=== PATIENT | female | born 1950 | race Caucasian/White ===

== ENCOUNTER 2017-07-26 09:38 | Inpatient (IN) | payer OTHER ==
[~2017-07-26] VITALS: Ht 154.9 cm; Wt 42.0 kg
[2017-07-26] MEDS ORDERED: morphine 4 MG/ML VIAL IV STA (10:35)
[2017-07-26] MEDS ORDERED: SOD CHLORIDE 0.9% 1,000 ML IV STA (10:35)
[2017-07-26] MEDS ORDERED: ONDANSETRON 4 MG INJ IV STA (10:35)
[2017-07-26] MEDS ORDERED: BENA20TA48 PO (10:46)
[2017-07-26] MEDS ORDERED: ATEN-51 PO (10:46)
[2017-07-26] MEDS ORDERED: CARB15DR BOTH EYES (10:47)
[2017-07-26] MEDS ORDERED: LATA2.5D9 BOTH EYES (10:47)
[2017-07-26 11:07] LABS: BASOPHILS % 0.1 % (0.0-2.0); EOSINOPHILS % 0.4 % (0.0-7.0); HEMATOCRIT 36.3 % (37.0-47.0); HEMOGLOBIN 12.6 g/dl (12.0-16.0); LYMPHOCYTES # 2.2 10^3/ul (0.8-2.9); LYMPHOCYTES % 27.8 % (15.0-51.0); MEAN CORPUSCULAR HEMOGLOBIN 29.2 pg (29.0-33.0); MEAN CORPUSCULAR HGB CONC 34.7 g/dl (32.0-37.0); MEAN CORPUSCULAR VOLUME 84.2 fl (82.0-101.0); MEAN PLATELET VOLUME 8.8 fl (7.4-10.4); MONOCYTE # 0.6 10^3/ul (0.3-0.9); MONOCYTES % 7.3 % (0.0-11.0); NEUTROPHILS % 64.1 % (39.0-77.0); PLATELET COUNT 300 10^3/UL (140-415); RED BLOOD COUNT 4.31 10^6/ul (4.20-5.40); RED CELL DISTRIBUTION WIDTH 11.9 % (11.5-14.5)
[2017-07-26 11:20] LABS: ALANINE AMINOTRANSFERASE 32 IU/L (13-69); ALBUMIN 4.6 g/dl (3.3-4.9); ALBUMIN/GLOBULIN RATIO 1.39; ALKALINE PHOSPHATASE 105 IU/L (42-121); ANION GAP 15 (8-16); ASPARTATE AMINO TRANSFERASE 32 IU/L (15-46); BILIRUBIN,INDIRECT 1.4 mg/dl (0-1.1); BILIRUBIN,TOTAL 1.4 mg/dl (0.2-1.3); BLOOD UREA NITROGEN 5 mg/dl (7-20); CALCIUM 9.7 mg/dl (8.4-10.2); CARBON DIOXIDE 25 mmol/L (21-31); CHLORIDE 80 mmol/L (97-110); CREATININE 0.62 mg/dl (0.44-1.00); GLUCOSE 108 mg/dl (70-220); POTASSIUM 4.2 mmol/L (3.5-5.1); TOTAL PROTEIN 7.9 g/dl (6.1-8.1)
[2017-07-26 11:35] LABS: ADD UMIC YES; UR ASCORBIC ACID NEGATIVE (NEGATIVE); UR BILIRUBIN (Dip) NEGATIVE (NEGATIVE); UR BLOOD (Dip) 1+ mg/dL (NEGATIVE); UR CLARITY SLIGHTLY CLOUDY (CLEAR); UR COLOR YELLOW (YELLOW); UR GLUCOSE (Dip) NEGATIVE (NEGATIVE); UR KETONES (Dip) TRACE mg/dL (NEGATIVE); UR LEUKOCYTE ESTERASE (Dip) NEGATIVE Leu/ul (NEGATIVE); UR NITRITE (Dip) NEGATIVE (NEGATIVE); UR RBC 3 /HPF (0-5); UR TOTAL PROTEIN (Dip) NEGATIVE (NEGATIVE); UR UROBILINOGEN (Dip) NEGATIVE (NEGATIVE)
[2017-07-26 11:37] LABS: SODIUM 116 mmol/L (135-144); TROPONIN-I < 0.012 ng/ml (0.00-0.12)
[2017-07-26] MEDS ORDERED: ONDANSETRON 4 MG INJ IV PRN (13:00)
[2017-07-26] MEDS ORDERED: ACETAMINOPHEN 325 MG TAB PO PRN (13:00)
--- NOTE | 2017-07-26 13:08 | ERA ---
ER Documentation Chief Complaint Date/Time DATE: 07/26/17 TIME: 13:05 Chief Complaint dizziness x 4 days, ap with vomiting and diarrhea x 2 days HPI Patient is a 66-year-old female with hypertension and glaucoma who presents with abdominal pain and vomiting. Her daughter had the same symptoms and was admitted to the hospital yesterday. The symptoms started 2-3 days ago. The pain in her abdomen is diffuse. The pain comes and goes. She has had diarrhea as well. She has no fevers. Upon review of old medical records this is the patient's first visit to the emergency department. Her primary doctor is Dr. Stewart. ROS All systems reviewed and are negative except as per history of present illness. Medications Home Meds Reported Medications Carboxymethylcellulose Sodium* (Refresh Tears*) 15 Ml Drops, 2 DROP BOTH EYES QID, #1 EA 07/26/17 Latanoprost (Xalatan) 2.5 Ml Drops, 1 DROP BOTH EYES QHS, #1 BOTTLE 07/26/17 Benazepril Hcl* (Benazepril Hcl*) 20 Mg Tablet, 20 MG PO DAILY, #30 TAB 07/26/17 Atenolol* (Atenolol*) 25 Mg Tablet, 25 MG PO DAILY, #30 TAB 07/26/17 Allergies Allergies: Coded Allergies: sulfamethoxazole (Verified Allergy, Severe, 07/26/17) trimethoprim (Verified Allergy, Severe, 07/26/17) PMhx/Soc History of Surgery: Yes (glaucoma, ) Anesthesia Reaction: No Hx Neurological Disorder: No Hx Respiratory Disorders: No Hx Cardiac Disorders: Yes (htn) Hx Psychiatric Problems: No Hx Miscellaneous Medical Probl: No Hx Alcohol Use: No Hx Substance Use: No Hx Tobacco Use: No Smoking Status: Never smoker FmHx Family History: diabetes Physical Exam Vitals Vital Signs Date Time Temp Pulse Resp B/P Pulse Ox O2 Delivery O2 Flow Rate FiO2 07/26/17 12:06 78 22 133/77 100 Room Air 07/26/17 09:42 98.1 81 18 176/92 99 Physical Exam Const: Moderate distress secondary to pain Head: Atraumatic Eyes: Normal Conjunctiva ENT: Normal External Ears, Nose and Mouth. Neck: Full range of motion..~ No meningismus. Resp: Clear to auscultation bilaterally Cardio: Regular rate and rhythm, no murmurs Abd: Soft, Diffuse tenderness to palpation without rebound or guarding Skin: No petechiae or rashes Back: No midline or flank tenderness Ext: No cyanosis, or edema Neur: Awake and alert Psych: Normal Mood and Affect Result Diagram: 07/26/17 1045 07/26/17 1045 Results 24 hrs Laboratory Tests Test 07/26/17 10:45 07/26/17 10:50 White Blood Count 8.010^3/ul Red Blood Count 4.3110^6/ul Hemoglobin 12.6g/dl Hematocrit 36.3% Mean Corpuscular Volume 84.2fl Mean Corpuscular Hemoglobin 29.2pg Mean Corpuscular Hemoglobin Concent 34.7g/dl Red Cell Distribution Width 11.9% Platelet Count 14403^3/UL Mean Platelet Volume 8.8fl Neutrophils % 64.1% Lymphocytes % 27.8% Monocytes % 7.3% Eosinophils % 0.4% Basophils % 0.1% Nucleated Red Blood Cells % 0.0/100WBC Neutrophils # (Manual) 5.110^3/ul Lymphocytes # 2.210^3/ul Monocytes # 0.610^3/ul Eosinophils # 0.010^3/ul Basophils # 0.010^3/ul Nucleated Red Blood Cells # 0.010^3/ul Sodium Level 116mmol/L Potassium Level 4.2mmol/L Chloride Level 80mmol/L Carbon Dioxide Level 25mmol/L Anion Gap 15 Blood Urea Nitrogen 5mg/dl Creatinine 0.62mg/dl Glucose Level 108mg/dl Calcium Level 9.7mg/dl Total Bilirubin 1.4mg/dl Direct Bilirubin 0.00mg/dl Indirect Bilirubin 1.4mg/dl Aspartate Amino Transf (AST/SGOT) 32IU/L Alanine Aminotransferase (ALT/SGPT) 32IU/L Alkaline Phosphatase 105IU/L Troponin I < 0.012ng/ml Total Protein 7.9g/dl Albumin 4.6g/dl Globulin 3.30g/dl Albumin/Globulin Ratio 1.39 Lipase 26U/L Urine Color YELLOW Urine Clarity SLIGHTLY CLOUDY Urine pH 8.0 Urine Specific [place] 1.010 Urine Ketones TRACEmg/dL Urine Nitrite NEGATIVEmg/dL Urine Bilirubin NEGATIVEmg/dL Urine Urobilinogen NEGATIVEmg/dL Urine Leukocyte Esterase NEGATIVELeu/ul Urine Microscopic RBC 3/HPF Urine Microscopic WBC 1/HPF Urine Hemoglobin 1+mg/dL Urine Glucose NEGATIVEmg/dL Urine Total Protein NEGATIVEmg/dl Current Medications Medications (Trade) Dose Ordered Sig/Kathya Route PRN Reason Start Time Stop Time Status Last Admin Dose Admin Sodium Chloride (NS) 1,000 ml @ 1,000 mls/hr Q1H STAT IV 07/26/17 10:35 07/26/17 11:34 DC 07/26/17 11:20 Morphine Sulfate (morphine) 4 mg ONCE STAT IV 07/26/17 10:35 07/26/17 10:36 DC 07/26/17 11:20 Ondansetron HCl (Zofran Inj) 4 mg ONCE STAT IV 07/26/17 10:35 07/26/17 10:36 DC 07/26/17 11:20 Ondansetron HCl (Zofran Inj) 4 mg ER BRIDGE PRN IV NAUSEA AND/OR VOMITING 07/26/17 13:00 07/27/17 12:59 Acetaminophen (Tylenol Tab) 650 mg ER BRIDGE PRN PO MILD PAIN/FEVER 07/26/17 13:00 07/27/17 12:59 Procedures/MDM Patient is a 66-year-old female presents with abdominal pain and vomiting. On routine workup she was found to have acute hyponatremia with a sodium level of 116. Given this low sodium she will need admission to the hospital for management. She was initially given 1 L fluid bolus of normal saline for fluid resuscitation given the vomiting and diarrhea and she finished this bolus prior to finding out the level of the sodium. After the sodium level was found I did tell the nurse to fluid restrict and did not give any more sodium so that we can prevent central pontine myelinolysis. The patient will need to be brought up slowly to a normal sodium level. I spoke with Dr. Rico from the panel team for admission to a telemetry bed as the patient has preferred [employer] insurance. Critical Care: Time: 35 minutes excluding all billable procedures. Treatments/Evaluations: Close monitoring and treatment of unstable vital signs, cardiorespiratory, and neurologic status, while maintaining tight balance of fluid, respiratory, and cardiac interventions. Departure Diagnosis: Primary Impression: Hyponatremia Additional Impressions: Abdominal pain Qualified Code: R10.84 - Generalized abdominal pain Vomiting Qualified Code: R11.2 - Non-intractable vomiting with nausea, unspecified vomiting type Condition: Serious DENNIS SANCHEZ MD Jul 26, 2017 13:08
[2017-07-26 14:54] VITALS: BP 179/70; PULSE 70; RESP 18; Ht 154.9 cm; Wt 42.0 kg
--- NOTE | 2017-07-26 15:13 | HP ---
Date/Time of Note Date/Time of Note DATE: 07/26/17 TIME: 15:12 Assessment/Plan VTE Prophylaxis VTE Prophylaxis Intervention: LMWH Lines/Catheters IV Catheter Type (from Nrs): Peripheral IV Central line still needed: No Urinary Cath still in place: No Assessment/Plan Assessment/Plan 1. Abdominal pain with nausea and vomiting - Etiology could be medication side effect since symptoms started after taking Bactrim for UTI - Has still been able to tolerate PO intake but has been poor - Zofran PRN for nausea - will start off with soft diet and advance as tolerated - Will check Cdiff due to reports of loose BMs that are foul smelling with recent antibiotic use 2. Hyponatremia, chronic - Per son, patient has been told multiple times that her sodium levels were running low. She was usually given IV fluid with improvement - Will fluid restrict at this time and order urine studies as well as plasma and urine osmolality to determine etiology of hyponatremia - Currently asymptomatic - Will consider getting nephrology on board since Dr. Parkinson is known to family for additional assistance 3. UTI? - patient was discharged on 07/23 from [facility] and did not complete course of antibiotics - no urinary symptoms and UA shows trace ketones and 1+ WBC. Since asymptomatic will hold off on treatment at this time. - afebrile and nl WBC so infection less likely - Urine culture ordered 4. HTN - will continue home medications with hold parameters 5. DVT prophylaxis - LMWH 6. Elevated LFT - Will continue to monitor. - negative murpheys sign - if continues to trend up will do US gallbladder in setting of vomiting and loose BM Code Status - Full Code I spent greater than 45 minutes with the patient and son discussing possible etiologies of medical condition as well as planned workup. All questions were answered and concerns addressed. HPI/ROS Admit Date/Time Admit Date/Time Jul 26, 2017 at 12:57 Hx of Present Illness 66 yo F with PMH glaucoma, cataracts, and hypertension presented to ED with abdominal pain, nausea, and vomiting for 3 day period. Son was at bedside as well providing information. Patient has been experiencing 3-4 episodes of nonbloody emesis daily. Last vomited at 9:30am on day of admission. Denies eating anything new but daughter was admitted for the same symptoms over the weekend. States abdominal pain is intermittent, not associated with eating, and relieved after vomiting. Unable to describe type of abdominal pain experiencing. She was recently admitted at [facility] in [place] and discharged on 07/23/17 with diagnosis of hyponatremia and UTI. She was discharged on Bactrim and states her nausea and vomiting began after starting the medication. She admits to loose BMs as well that are foul smelling. She stopped the medication after one dose. Denies any dysuria, suprapubic tenderness, change in smell or color of urine or hematuria. ROS please see HPI for pertinent positives. All other systems reviewed and are negative. Constitutional: fatigue, nausea, poor po, No chills, No febrile, No weight change Eyes: no complaints, No discharge, No redness ENT: no complaints, No congestion, No discharge, No dysphagia Respiratory: shortness of breath, No cough, No sputum, No wheezing Cardiovascular: lightheadedness, No chest pain, No orthopenea, No palpitations Gastrointestinal: diarrhea, nausea, pain, vomiting, No blood, No constipation, No flatus Genitourinary: No bleeding, No discharge, No dysuria, No hematuria Musculoskeletal: back pain, No neck pain, No restricted range of motion Skin: No bruising, No erythema, No laceration, No rash Neurologic: dizziness, headache, No focal-weakness, No syncope Endocrine: dry skin, No polydypsia, No polyuria Lymphatic: No lymphadema, No tender nodes Psychological: No confusion, No depression Immunologic: No pruritis, No urticaria PMH/Family/Social Past Medical History glaucoma, cataracts, hyponatremia Medical History: hypertension Past Surgical History Cesarian Past Surgical Hx: appendectomy Family History Significant Family History: heart disease, renal disease Social History Alcohol Use: none Smoking Status: Never smoker Drug Use: none Exam/Review of Systems Vital Signs Vitals Vital Signs Date Time Temp Pulse Resp B/P Pulse Ox O2 Delivery O2 Flow Rate FiO2 07/26/17 14:54 70 18 179/70 100 Room Air 07/26/17 09:42 98.1 Exam Constitutional: alert, oriented, well developed Psych: nl mood/affect, No confusion, No depression Head: atraumatic, normocephalic, No hematomas Eyes: EOMI, No icteric ENMT: nl external ears & nose, nl lips & teeth, nl nasal mucosa & septum Neck: No bruits, No jvd Respiratory: clear to auscultation, normal air movement, No diminished breath sounds, No labored breathing, No wheezing Cardiovascular: nl pulses, regular rate and rhythm, No diastolic murmur, No systolic murmur Gastrointestinal: nl liver, spleen, soft, tender, No ascites, No distended, No firm, No rebound or guarding Genitourinary - Female: No CVA tenderness Musculoskeletal: No spine non-tender Extremities: normal pulses, No clubbing, No cyanosis, No edema Neurological: LUMP RECEIVER II-XII intact Skin: No ecchymosis, No laceration Lymph: No enlarged Labs Result Diagram: 07/26/17 1045 07/26/17 1045 Medications Medications Current Medications Atenolol (Tenormin) 25 mg DAILY PO ; Start 07/27/17 at 09:00 Benazepril HCl (Lotensin) 20 mg DAILY PO ; Start 07/27/17 at 09:00 Eye Lubricant (Refresh Plus) 2 drop QID BOTH EYES ; Start 07/26/17 at 17:00 Latanoprost (Xalatan) 1 drop QHS BOTH EYES ; Start 07/26/17 at 21:00 AYALA BRITO MD Jul 26, 2017 15:13
[2017-07-26] MEDS ORDERED: NACL 0.9% 3 ML SYG IV SCH (15:30)
[2017-07-26 16:00] VITALS: PULSE 62
[2017-07-26] MEDS: CARBOXYMETHYLCELLULOSE 0.5% 0.1 ML OPH BOTH EYES SCH ×2 (17:00→21:16)
[2017-07-26 19:05] VITALS: BP 167/71; PULSE 69; RESP 16
[2017-07-26 20:02] LABS: POTASSIUM,URINE RANDOM 38.4 mmol/L (25-125)
[2017-07-26 20:24] LABS: ALBUMIN 4.7 g/dl (3.3-4.9); CALCIUM 9.6 mg/dl (8.4-10.2); CREATININE 0.64 mg/dl (0.44-1.00); PHOSPHORUS 3.5 mg/dl (2.5-4.9); POTASSIUM 4.3 mmol/L (3.5-5.1)
[2017-07-26] MEDS ORDERED: FAMOTIDINE 20 MG INJ IV SCH (21:00)
[2017-07-26] MEDS: FAMOTIDINE 20 MG TAB PO SCH (21:16)
[2017-07-26] MEDS: LATANOPROST 0.005% 2.5 ML OPH BOTH EYES SCH (21:16)
[2017-07-26 22:02] VITALS: PULSE 68
[2017-07-27] VITALS (14 sets, daily range): BP systolic 104–163; BP diastolic 59–76; PULSE 62–77; RESP 16–18
[2017-07-27 06:11] LABS: BASOPHILS % 0.4 % (0.0-2.0); EOSINOPHILS # 0.1 10^3/ul (0.0-0.5); EOSINOPHILS % 0.7 % (0.0-7.0); HEMOGLOBIN 12.5 g/dl (12.0-16.0); LYMPHOCYTES # 2.9 10^3/ul (0.8-2.9); LYMPHOCYTES % 43.3 % (15.0-51.0); MEAN CORPUSCULAR HEMOGLOBIN 28.3 pg (29.0-33.0); MEAN CORPUSCULAR HGB CONC 32.9 g/dl (32.0-37.0); MEAN CORPUSCULAR VOLUME 86.2 fl (82.0-101.0); MEAN PLATELET VOLUME 9.3 fl (7.4-10.4); MONOCYTE # 0.7 10^3/ul (0.3-0.9); MONOCYTES % 10.8 % (0.0-11.0); NEUTROPHILS % 44.7 % (39.0-77.0); PLATELET COUNT 311 10^3/UL (140-415); RED BLOOD COUNT 4.41 10^6/ul (4.20-5.40); RED CELL DISTRIBUTION WIDTH 12.3 % (11.5-14.5); WHITE BLOOD COUNT 6.8 10^3/ul (4.8-10.8)
[2017-07-27 06:41] LABS: ALBUMIN 4.2 g/dl (3.3-4.9); ALBUMIN/GLOBULIN RATIO 1.27; BILIRUBIN,INDIRECT 1.3 mg/dl (0-1.1); BILIRUBIN,TOTAL 1.3 mg/dl (0.2-1.3); CALCIUM 9.3 mg/dl (8.4-10.2); CREATININE 0.87 mg/dl (0.44-1.00); POTASSIUM 4.5 mmol/L (3.5-5.1); TOTAL PROTEIN 7.5 g/dl (6.1-8.1)
[2017-07-27] MEDS: ENOXAPARIN 40 MG/0.4 ML SYG SC SCH (09:00)
[2017-07-27] MEDS: CARBOXYMETHYLCELLULOSE 0.5% 0.1 ML OPH BOTH EYES SCH ×4 (09:03→21:10)
[2017-07-27] MEDS: ATENOLOL 25 MG TAB PO SCH (09:04)
[2017-07-27] MEDS: BENAZEPRIL 20 MG TAB PO SCH (09:04)
--- NOTE | 2017-07-27 10:43 | PN ---
Date/Time of Note Date/Time of Note DATE: 07/27/17 TIME: 10:32 Assessment/Plan VTE Prophylaxis VTE Prophylaxis Intervention: LMWH Lines/Catheters IV [facility] Saline Lock Urinary Cath still in place: No Assessment/Plan Assessment/Plan 1. Abdominal pain with nausea/vomiting - resolved - most likely secondary to hyponatremia - will advance diet 2. chronic hyponatremia - Na improved to 125 with fluid restriction of 800cc - most likely SIADH given elevated urine sodium and osmolality - Nephrology consulted and appreciated assistance given patient has been found to have low sodium levels frequently over the past few months - Patient admits she feels dizzy, nauseous, with abdominal pain when her sodium levels run low - Will order TSH to rule out hypothyroidism as contributor as well 3. HTN - BP stable. continue current management 4. UTI? - urine culture negative and patient is asymptomatic. Will not treat with antibiotics - afebrile and WBC nl Subjective 24 Hr Interval Summary Free Text/Dictation Patient seen and examined with son at bedside. States feeling significantly better and no longer experiencing nausea, vomiting, dizziness, or abdominal pain. States when her sodium gets low she feels how she did at time of admission. Tolerating diet and following water restrictions. Exam/Review of Systems Vital Signs Vitals Vital Signs Date Time Temp Pulse Resp B/P Pulse Ox O2 Delivery O2 Flow Rate FiO2 07/27/17 08:00 77 07/27/17 06:53 98.1 18 122/62 96 07/27/17 05:33 Room Air Exam Constitutional: alert, oriented, well developed, NAD Head: atraumatic, normocephalic, Eyes: EOMI, non icteric Neck: No bruits, No jvd Respiratory: clear to auscultation, normal air movement, no diminished breath sounds, No labored breathing, No wheezing Cardiovascular: nl pulses, regular rate and rhythm, no systolic murmur Gastrointestinal: nl liver, spleen, soft, tender, no ascites, No distended, No firm, No rebound or guarding Extremities: normal pulses, No clubbing, No cyanosis, No edema Neurological: COOK BOX FILLER II-XII intact Skin: No ecchymosis, No laceration Results Result Diagram: 07/27/17 0435 07/27/17 0435 Results 24 hrs Laboratory Tests Test 07/26/17 10:45 07/26/17 10:50 07/26/17 14:01 07/27/17 04:35 White Blood Count 8.0 6.8 Red Blood Count 4.31 4.41 Hemoglobin 12.6 12.5 Hematocrit 36.3 L 38.0 Mean Corpuscular Volume 84.2 86.2 Mean Corpuscular Hemoglobin 29.2 28.3 L Mean Corpuscular Hemoglobin Concent 34.7 32.9 Red Cell Distribution Width 11.9 12.3 Platelet Count 300 311 Mean Platelet Volume 8.8 9.3 Neutrophils % 64.1 44.7 Lymphocytes % 27.8 43.3 Monocytes % 7.3 10.8 Eosinophils % 0.4 0.7 Basophils % 0.1 0.4 Nucleated Red Blood Cells % 0.0 0.0 Neutrophils # (Manual) 5.1 3.0 Lymphocytes # 2.2 2.9 Monocytes # 0.6 0.7 Eosinophils # 0.0 0.1 Basophils # 0.0 0.0 Nucleated Red Blood Cells # 0.0 0.0 Sodium Level 116 *L 125 L Potassium Level 4.3 4.5 Chloride Level 82 L 90 L Carbon Dioxide Level 23 27 Anion Gap 15 13 Blood Urea Nitrogen 5 L 12 Creatinine 0.64 0.87 Glucose Level 111 80 Osmolality 237 L Calcium Level 9.6 9.3 Phosphorus Level 3.5 Total Bilirubin 1.4 H 1.3 Direct Bilirubin 0.00 0.00 Indirect Bilirubin 1.4 H 1.3 H Aspartate Amino Transf (AST/SGOT) 32 51 H Alanine Aminotransferase (ALT/SGPT) 32 54 Alkaline Phosphatase 105 108 Troponin I < 0.012 Total Protein 7.9 7.5 Albumin 4.7 4.2 Globulin 3.30 H 3.30 H Albumin/Globulin Ratio 1.39 1.27 Lipase 26 Urine Color YELLOW Urine Clarity SLIGHTLY CLOUDY A Urine pH 8.0 Urine Specific [place] 1.010 Urine Ketones TRACE A Urine Nitrite NEGATIVE Urine Bilirubin NEGATIVE Urine Urobilinogen NEGATIVE Urine Leukocyte Esterase NEGATIVE Urine Microscopic RBC 3 Urine Microscopic WBC 1 Urine Hemoglobin 1+ H Urine Osmolality 396 Urine Random Sodium 146 H Urine Random Potassium 38.4 Urine Glucose NEGATIVE Urine Total Protein NEGATIVE Bedside Glucose 111 Magnesium Level 2.1 Medications Medications Current Medications Atenolol (Tenormin) 25 mg DAILY PO Last administered on 07/27/17t 09:04; Admin Dose 25 MG; Start 07/27/17 at 09:00 Benazepril HCl (Lotensin) 20 mg DAILY PO Last administered on 07/27/17 09:04; Admin Dose 20 MG; Start 07/27/17 at 09:00 Eye Lubricant (Refresh Plus) 2 drop QID BOTH EYES Last administered on 09:03; Admin Dose 2 DROP; Start 07/26/17 at 17:00 Latanoprost (Xalatan) 1 drop QHS BOTH EYES Last administered on 07/26/17 21:16 ; Admin Dose 1 DROP; Start 07/26/17 at 21:00 Enoxaparin Sodium (Lovenox) 40 mg DAILY SC ; Start 07/27/17 at 09:00 Famotidine (Pepcid) 20 mg Q24H PO Last administered on 07/26/17 21:16; Admin Dose 20 MG; Start 07/26/17 at 21:06 AYALA BRITO MD Jul 27, 2017 10:43
[2017-07-27 11:06] LABS: URIC ACID 3.5 mg/dl (3.1-7.9)
[2017-07-27 11:39] LABS: THYROID STIMULATING HORMONE 7.09 MIU/L (0.465-4.680)
--- NOTE | 2017-07-27 13:54 | RADRPT ---
PROCEDURE: Renal US. CLINICAL INDICATION: hyponatremia TECHNIQUE: Multiple sonographic images of the kidneys were obtained. The images were reviewed on a PACS workstation. COMPARISON: No prior studies are available for comparison. FINDINGS: The right kidney measures 10.3 cm in length. The left kidney measures 10.1 cm in length. Renal corti sreedhar echogenicity is within normal limits bilaterally. No hydronephrosis or shadowing renal calculus is identified. No perirenal collection is seen. The bladder is under distended and could not be adequately evaluated. IMPRESSION: Unremarkable renal ultrasound. RPTAT: QQ Physician Herminia Date Time Electronically viewed and signed by Physician Herminia on 07/27/2017 13:54 /
[2017-07-27] MEDS: DEMECLOCYCLINE 150 MG TAB NGT SCH ×2 (14:28→21:00)
[2017-07-27] MEDS: FAMOTIDINE 20 MG TAB PO SCH (21:06)
[2017-07-27] MEDS: LATANOPROST 0.005% 2.5 ML OPH BOTH EYES SCH (21:11)
--- NOTE | 2017-07-27 22:31 | CONS ---
Date/Time of Note Date/Time of Note DATE: 07/27/17 TIME: 22:30 Assessment/Plan Assessment/Plan Chief Complaint/Hosp Course HYPONATREMIA POSS SIADH HTN PLAN PER ORDER Problems: Consultation Date/Type/Reason Admit Date/Time Jul 26, 2017 at 12:57 Initial Consult Date Type of Consultation: [id number] HR Interval Summary Constitutional: no complaints Exam/Review of Systems Vital Signs Vitals Vital Signs Date Time Temp Pulse Resp B/P Pulse Ox O2 Delivery O2 Flow Rate FiO2 07/27/17 20:39 72 07/27/17 20:00 97.8 18 135/61 98 07/27/17 05:33 Room Air Exam Neck: supple Respiratory: clear to auscultation Cardiovascular: regular rate and rhythm Gastrointestinal: bowel sounds, soft Musculoskeletal: nl extremities to inspection Extremities: normal pulses Neurological: CARD PAINTER II-XII intact, nl mental status Results Result Diagram: 07/27/17 0435 07/27/17 0435 Results 24 hrs Laboratory Tests Test 07/27/17 04:35 07/27/17 11:25 07/27/17 12:09 07/27/17 16:04 White Blood Count 6.8 Red Blood Count 4.41 Hemoglobin 12.5 Hematocrit 38.0 Mean Corpuscular Volume 86.2 Mean Corpuscular Hemoglobin 28.3 L Mean Corpuscular Hemoglobin Concent 32.9 Red Cell Distribution Width 12.3 Platelet Count 311 Mean Platelet Volume 9.3 Neutrophils % 44.7 Lymphocytes % 43.3 Monocytes % 10.8 Eosinophils % 0.7 Basophils % 0.4 Nucleated Red Blood Cells % 0.0 Neutrophils # (Manual) 3.0 Lymphocytes # 2.9 Monocytes # 0.7 Eosinophils # 0.1 Basophils # 0.0 Nucleated Red Blood Cells # 0.0 Sodium Level 125 L Potassium Level 4.5 Chloride Level 90 L Carbon Dioxide Level 27 Anion Gap 13 Blood Urea Nitrogen 12 Creatinine 0.87 Glucose Level 80 Uric Acid 3.5 Calcium Level 9.3 Magnesium Level 2.1 Total Bilirubin 1.3 Direct Bilirubin 0.00 Indirect Bilirubin 1.3 H Aspartate Amino Transf (AST/SGOT) 51 H Alanine Aminotransferase (ALT/SGPT) 54 Alkaline Phosphatase 108 Total Protein 7.5 Albumin 4.2 Globulin 3.30 H Albumin/Globulin Ratio 1.27 Thyroid Stimulating Hormone (TSH) 7.090 H Urine Osmolality 292 Urine Random Sodium 27 L Osmolality 261 L Random Cortisol 10.2 Test 07/27/17 19:44 Free Thyroxine 1.31 Free Triiodothyronine (T3) pg/mL 3.73 Medications Medications Current Medications Atenolol (Tenormin) 25 mg DAILY PO Last administered on 07/27/17 09:04; Admin Dose 25 MG; Start 07/27/17 at 09:00 Benazepril HCl (Lotensin) 20 mg DAILY PO Last administered on 07/27/17 09:04; Admin Dose 20 MG; Start 07/27/17 at 09:00 Eye Lubricant (Refresh Plus) 2 drop QID BOTH EYES Last administered on 21:10; Admin Dose 2 DROP; Start 07/26/17 at 17:00 Latanoprost (Xalatan) 1 drop QHS BOTH EYES Last administered on 07/27/17 21:11 ; Admin Dose 1 DROP; Start 07/26/17 at 21:00 Enoxaparin Sodium (Lovenox) 40 mg DAILY SC ; Start 07/27/17 at 09:00 Famotidine (Pepcid) 20 mg Q24H PO Last administered on 07/26/17 21:16; Admin Dose 20 MG; Start 07/26/17 at 21:06 Demeclocycline HCl (Declomycin) 300 mg BID NGT Last administered on 07/27/17 14 :28; Admin Dose 300 MG; Start 07/27/17 at 14:00 Levothyroxine Sodium (Synthroid) 25 mcg DAILY@06 PO ; Start 07/28/17 at 06:00 JAROD CORCORAN MD Jul 27, 2017 22:31
[2017-07-28] VITALS (13 sets, daily range): BP systolic 105–128; BP diastolic 59–73; PULSE 64–77; RESP 17–19
[2017-07-28] MEDS: LEVOTHYROXINE 25 MCG TAB PO SCH (06:00)
--- NOTE | 2017-07-28 06:24 | CONS ---
DATE OF ADMISSION: 07/26/2017 DATE OF CONSULTATION: 07/28/2017 Thank you, Dr. Lott, for kindly asking me to see this patient in Nephrology Consultation. 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 The patient was taken to the ER with a history of hypertension, glaucoma, presents with abdominal pain and vomiting. The patient also has a history of hypernatremia in the past and noted to have sodium 116, and a nephrology consultation requested. The patient denies taking any diuretic, does drink plenty of water. Denies any dysuria, hematuria, flank pain, headache, diplopia in the past. PAST MEDICAL/SURGICAL HISTORY: Positive for hypertension, glaucoma, . The patient had history of appendectomy. ALLERGIES: bactrim, TRIMETHOPRIM. SOCIAL HISTORY: Negative. FAMILY HISTORY: Negative. MEDICATION: 1. Atenolol. 2. Benazepril. 3. Demeclocycline. 4. Lovenox. 5. Eye lubricant. 6. Pepcid. REVIEW OF SYSTEMS: HEENT: Unremarkable. RESPIRATORY: Unremarkable. ABDOMEN: Unremarkable. EXTREMITIES: Unremarkable for numbness or tingling. GENITOURINARY: No dysuria, hematuria, flank pain. PHYSICAL EXAMINATION: GENERAL: Pale looking female. Awake and alert. VITAL SIGNS: Pulse 72, blood pressure 135/61. HEENT: Head is atraumatic, normocephalic. Pupils equal, reactive to light. NECK: Supple. No JVD. LUNGS: Clear. CARDIAC: S1, S2 normal. ABDOMEN: Soft. Bowel sounds normal. No palpable mass. EXTREMITIES: No cyanosis, clubbing, or edema. NEUROLOGIC: Patient is awake, alert, with no focal deficit. LABORATORY: Sodium 116,. Urinalysis: The pH is 8, specific gravity 1.010. RADIOLOGY: Patient has right kidney 10.3, left kidney 10.1. IMPRESSION: 1. Hypernatremia. 2. Rule out underlying syndrome of inappropriate antidiuretic hormone secretion. 3. Hypernatremia worsened by possible gastrointestinal symptoms. 4. Rule out underlying hypothyroidism. 5. Hypertension. 6. Anemia. PLAN: At this point, a urine sodium, CAT scan. Patient will have serum cortisol level checked, thyroid panel, a CT of the brain, abdomen to complete the workup. Patient will be given normal saline with intermittent use of . This patient also is given option of using demeclocycline/samsaca_ as an outpatient. The patient will think about this. Sodium will be checked very closely. Thank you, Dr. Lott, for kindly asking me to see this patient in a Nephrology consultation. Dictated By: Adama Parkinson MD /hannah/[email or web address] /Document#: [id number] JANNET
[2017-07-28 07:37] LABS: ALBUMIN/GLOBULIN RATIO 1.37; BILIRUBIN,INDIRECT 0.9 mg/dl (0-1.1); BILIRUBIN,TOTAL 0.9 mg/dl (0.2-1.3); CALCIUM 9.4 mg/dl (8.4-10.2); CREATININE 0.64 mg/dl (0.44-1.00); POTASSIUM 4.7 mmol/L (3.5-5.1); TOTAL PROTEIN 6.9 g/dl (6.1-8.1)
[2017-07-28] MEDS: ENOXAPARIN 40 MG/0.4 ML SYG SC SCH (08:57)
[2017-07-28] MEDS: DEMECLOCYCLINE 150 MG TAB NGT SCH ×2 (08:57→21:00)
[2017-07-28] MEDS: ATENOLOL 25 MG TAB PO SCH (08:58)
[2017-07-28] MEDS: BENAZEPRIL 20 MG TAB PO SCH (08:58)
[2017-07-28] MEDS: CARBOXYMETHYLCELLULOSE 0.5% 0.1 ML OPH BOTH EYES SCH ×4 (08:59→21:52)
--- NOTE | 2017-07-28 10:40 | PN ---
Date/Time of Note Date/Time of Note DATE: 07/28/17 TIME: 10:40 Assessment/Plan VTE Prophylaxis VTE Prophylaxis Intervention: LMWH Lines/Catheters IV Catheter Type (from Nrs): Saline Lock Urinary Cath still in place: No Assessment/Plan Assessment/Plan 1. Chronic hyponatremia - Na improved to 126 - Did not tolerate demeclocycline yesterday and refusing to take medication again - Discussed discharge plan with Dr. Parkinson and feels as if patient should not be discharged until sodium is >130. Will give a dose of Tolvaptan and monitor Na levels 2. Subclinical hypothyroidism - Will need to monitor as an outpatient - Denies any symptoms currently 3. Abdominal pain with nausea/vomiting - resolved - most likely secondary to hyponatremia 4. HTN - BP stable. continue current management Subjective 24 Hr Interval Summary Free Text/Dictation Patient seen and examined with son at bedside. States after took demeclocycline was not feeling well but better this am. Denies any further episodes of nausea, vomiting, abdominal pain. No chest pain, shortness of breath, dizziness, or LOC. Exam/Review of Systems Vital Signs Vitals Vital Signs Date Time Temp Pulse Resp B/P Pulse Ox O2 Delivery O2 Flow Rate FiO2 07/28/17 08:43 72 07/28/17 07:57 98.0 19 128/68 98 07/27/17 05:33 Room Air Intake and Output 07/27/17 07/27/17 07/28/17 14:59 22:59 06:59 Intake Total 400 ml 100 ml Balance 400 ml 100 ml Exam Constitutional: alert, oriented, well developed, NAD Head: atraumatic, normocephalic, Eyes: EOMI, non icteric Neck: No bruits, No jvd Respiratory: clear to auscultation, normal air movement, no diminished breath sounds, No wheezing Cardiovascular: nl pulses, regular rate and rhythm, no systolic murmur Gastrointestinal: nl liver, spleen, soft, tender, no ascites, No distended, No firm, No rebound or guarding Extremities: normal pulses, No clubbing, No cyanosis, No edema Results Result Diagram: 07/27/17 0435 07/28/17 0611 Results 24 hrs Laboratory Tests Test 07/27/17 11:25 07/27/17 12:09 07/27/17 16:04 07/27/17 19:44 Urine Osmolality 292 Urine Random Sodium 27 L Osmolality 261 L Random Cortisol 10.2 Free Thyroxine 1.31 Free Triiodothyronine (T3) pg/mL 3.73 Test 07/28/17 06:11 Sodium Level 126 L Potassium Level 4.7 Chloride Level 94 L Carbon Dioxide Level 24 Anion Gap 13 Blood Urea Nitrogen 18 Creatinine 0.64 Glucose Level 77 Calcium Level 9.4 Total Bilirubin 0.9 Direct Bilirubin 0.00 Indirect Bilirubin 0.9 Aspartate Amino Transf (AST/SGOT) 61 H Alanine Aminotransferase (ALT/SGPT) 66 Alkaline Phosphatase 101 Total Protein 6.9 Albumin 4.0 Globulin 2.90 Albumin/Globulin Ratio 1.37 Medications Medications Current Medications Atenolol (Tenormin) 25 mg DAILY PO Last administered on 07/28/17 08:58; Admin Dose 25 MG; Start 07/27/17 at 09:00 Benazepril HCl (Lotensin) 20 mg DAILY PO Last administered on 07/28/17 08:58; Admin Dose 20 MG; Start 07/27/17 at 09:00 Eye Lubricant (Refresh Plus) 2 drop QID BOTH EYES Last administered on 08:59; Admin Dose 2 DROP; Start 07/26/17 at 17:00 Latanoprost (Xalatan) 1 drop QHS BOTH EYES Last administered on 07/27/17 21:11 ; Admin Dose 1 DROP; Start 07/26/17 at 21:00 Enoxaparin Sodium (Lovenox) 40 mg DAILY SC ; Start 07/27/17 at 09:00 Famotidine (Pepcid) 20 mg Q24H PO Last administered on 07/26/17 21:16; Admin Dose 20 MG; Start 07/26/17 at 21:06 Demeclocycline HCl (Declomycin) 300 mg BID NGT Last administered on 07/27/17 14 :28; Admin Dose 300 MG; Start 07/27/17 at 14:00 Levothyroxine Sodium (Synthroid) 25 mcg DAILY@06 PO ; Start 07/28/17 at 06:00 AYALA BRITO MD Jul 28, 2017 10:40
[2017-07-28] MEDS ORDERED: TOLVAPTAN 15 MG TABLET PO ONE (13:30)
--- NOTE | 2017-07-28 16:53 | PN ---
Date/Time of Note Date/Time of Note DATE: 07/28/17 TIME: 16:51 Assessment/Plan VTE Prophylaxis VTE Prophylaxis Intervention: other Lines/Catheters [facility] Saline [facility] Urinary Cath still in place: No Assessment/Plan Chief Complaint/Hosp Course IMPRESSION: 1. Hyponatremia. 2. Rule out underlying syndrome of inappropriate antidiuretic hormone secretion. 3. Hypornatremia worsened by possible gastrointestinal symptoms. 4. Rule out underlying hypothyroidism. 5. Hypertension. 6. Anemia. plan samsca Problems: Subjective 24 Hr Interval Summary Respiratory: no complaints Cardiovascular: no complaints Gastrointestinal: no complaints Genitourinary: no complaints Exam/Review of Systems Vital Signs Vitals Vital Signs Date Time Temp Pulse Resp B/P Pulse Ox O2 Delivery O2 Flow Rate FiO2 07/28/17 16:31 73 07/28/17 15:00 98.0 19 107/70 98 07/27/17 05:33 Room Air Intake and Output 07/27/17 07/27/17 07/28/17 15:00 23:00 07:00 Intake Total 400 ml 100 ml Balance 400 ml 100 ml Exam Neck: supple Respiratory: clear to auscultation Cardiovascular: regular rate and rhythm Gastrointestinal: bowel sounds (+), soft Extremities: No edema Results Result Diagram: 07/27/17 0435 07/28/17 0611 Results 24 hrs Laboratory Tests Test 07/27/17 19:44 07/28/17 06:11 Free Thyroxine 1.31 Free Triiodothyronine (T3) pg/mL 3.73 Sodium Level 126 L Potassium Level 4.7 Chloride Level 94 L Carbon Dioxide Level 24 Anion Gap 13 Blood Urea Nitrogen 18 Creatinine 0.64 Glucose Level 77 Calcium Level 9.4 Total Bilirubin 0.9 Direct Bilirubin 0.00 Indirect Bilirubin 0.9 Aspartate Amino Transf (AST/SGOT) 61 H Alanine Aminotransferase (ALT/SGPT) 66 Alkaline Phosphatase 101 Total Protein 6.9 Albumin 4.0 Globulin 2.90 Albumin/Globulin Ratio 1.37 Medications Medications Current Medications Atenolol (Tenormin) 25 mg DAILY PO Last administered on 07/28/17 08:58; Admin Dose 25 MG; Start 07/27/17 at 09:00 Benazepril HCl (Lotensin) 20 mg DAILY PO Last administered on 07/28/17 08:58; Admin Dose 20 MG; Start 07/27/17 at 09:00 Eye Lubricant (Refresh Plus) 2 drop QID BOTH EYES Last administered on 13:47; Admin Dose 2 DROP; Start 07/26/17 at 17:00 Latanoprost (Xalatan) 1 drop QHS BOTH EYES Last administered on 07/27/17 21:11 ; Admin Dose 1 DROP; Start 07/26/17 at 21:00 Enoxaparin Sodium (Lovenox) 40 mg DAILY SC ; Start 07/27/17 at 09:00 Famotidine (Pepcid) 20 mg Q24H PO Last administered on 07/26/17 21:16; Admin Dose 20 MG; Start 07/26/17 at 21:06 Demeclocycline HCl (Declomycin) 300 mg BID NGT Last administered on 07/27/17 14 :28; Admin Dose 300 MG; Start 07/27/17 at 14:00 Levothyroxine Sodium (Synthroid) 25 mcg DAILY@06 PO ; Start 07/28/17 at 06:00 JAROD CORCORAN MD Jul 28, 2017 16:53
[2017-07-28] MEDS: FAMOTIDINE 20 MG TAB PO SCH (21:06)
[2017-07-28] MEDS: LATANOPROST 0.005% 2.5 ML OPH BOTH EYES SCH (21:52)
[2017-07-29] VITALS (7 sets, daily range): BP systolic 97–122; BP diastolic 48–63; PULSE 64–81; RESP 17–20
[2017-07-29] MEDS: LEVOTHYROXINE 25 MCG TAB PO SCH (06:00)
[2017-07-29] MEDS: DEMECLOCYCLINE 150 MG TAB NGT SCH (09:00)
[2017-07-29] MEDS: ENOXAPARIN 40 MG/0.4 ML SYG SC SCH (09:00)
[2017-07-29] MEDS: BENAZEPRIL 20 MG TAB PO SCH (09:13)
[2017-07-29] MEDS: ATENOLOL 25 MG TAB PO SCH (09:13)
[2017-07-29 09:36] LABS: ALBUMIN 4.4 g/dl (3.3-4.9); CREATININE 0.73 mg/dl (0.44-1.00); MAGNESIUM 2.3 mg/dl (1.7-2.5); POTASSIUM 4.8 mmol/L (3.5-5.1)
[2017-07-29 10:05] LABS: PHOSPHORUS 4.5 mg/dl (2.5-4.9)
--- NOTE | 2017-07-29 10:41 | PN ---
Date/Time of Note Date/Time of Note DATE: 07/29/17 TIME: 10:40 Assessment/Plan VTE Prophylaxis VTE Prophylaxis Intervention: LMWH Lines/Catheters IV Catheter Type (from [facility]): Saline Lock Urinary Cath still in place: No Assessment/Plan Assessment/Plan 1. Chronic hyponatremia - After Tolvaptan, Na improved to 133 - Spoke with Dr. Parkinson and cleared for discharge - Will advise to take NaCl tablets with meals 2. Subclinical hypothyroidism - Will need to monitor as an outpatient - Denies any symptoms currently 3. Abdominal pain with nausea/vomiting - resolved - most likely secondary to hyponatremia 4. HTN - BP stable. continue current management Subjective 24 Hr Interval Summary Free Text/Dictation patient doing well and has no new complaints. Tolerated the Tolvaptan yesterday and denies any further episodes of abdominal pain, nausea, vomiting, dizziness, chest pain, or diarrhea. Exam/Review of Systems Vital Signs Vitals Vital Signs Date Time Temp Pulse Resp B/P Pulse Ox O2 Delivery O2 Flow Rate FiO2 07/29/17 08:47 78 07/29/17 07:51 98.4 17 113/56 98 07/27/17 05:33 Room Air Intake and Output 07/28/17 07/28/17 07/29/17 15:00 23:00 07:00 Intake Total 500 ml 200 ml Balance 500 ml 200 ml Exam Constitutional: alert, oriented, well developed, NAD Head: atraumatic, normocephalic, Eyes: EOMI, non icteric Neck: No bruits, No jvd Respiratory: clear to auscultation, normal air movement, no diminished breath sounds, No wheezing Cardiovascular: nl pulses, regular rate and rhythm, no systolic murmur Gastrointestinal: nl liver, spleen, soft, tender, no ascites, No distended, No firm, No rebound or guarding Extremities: normal pulses, No clubbing, No cyanosis, No edema Results Result Diagram: 07/27/17 0435 07/29/17 0839 Results 24 hrs Laboratory Tests Test 07/28/17 16:41 07/29/17 00:52 07/29/17 08:39 Sodium Level 128 L 131 L 133 L Potassium Level 4.8 Chloride Level 97 Carbon Dioxide Level 27 Anion Gap 14 Blood Urea Nitrogen 17 Creatinine 0.73 Glucose Level 94 Calcium Level 10.0 Phosphorus Level 4.5 Magnesium Level 2.3 Albumin 4.4 Medications Medications Current Medications Atenolol (Tenormin) 25 mg DAILY PO Last administered on 07/29/17 09:13; Admin Dose 25 MG; Start 07/27/17 at 09:00 Benazepril HCl (Lotensin) 20 mg DAILY PO Last administered on 07/29/17 09:13; Admin Dose 20 MG; Start 07/27/17 at 09:00 Eye Lubricant (Refresh Plus) 2 drop QID BOTH EYES Last administered on 21:52; Admin Dose 2 DROP; Start 07/26/17 at 17:00 Latanoprost (Xalatan) 1 drop QHS BOTH EYES Last administered on 07/28/17 21:52 ; Admin Dose 1 DROP; Start 07/26/17 at 21:00 Enoxaparin Sodium (Lovenox) 40 mg DAILY SC ; Start 07/27/17 at 09:00 Famotidine (Pepcid) 20 mg Q24H PO Last administered on 07/26/17 21:16; Admin Dose 20 MG; Start 07/26/17 at 21:06 Demeclocycline HCl (Declomycin) 300 mg BID NGT Last administered on 07/27/17 14 :28; Admin Dose 300 MG; Start 07/27/17 at 14:00 Levothyroxine Sodium (Synthroid) 25 mcg DAILY@06 PO ; Start 07/28/17 at 06:00 AYALA BRITO MD Jul 29, 2017 10:41
[2017-07-29] MEDS: CARBOXYMETHYLCELLULOSE 0.5% 0.1 ML OPH BOTH EYES SCH ×2 (11:10→13:03)
[2017-07-29] MEDS ORDERED: SODI1TAB42 PO (11:54)
--- NOTE | 2017-07-29 11:59 | PDOCDIS ---
Discharge Instructions DIAGNOSIS Discharge Diagnosis Abdominal pain with nausea/vomiting secondary to hyponatremia CONDITION Patient Condition: Good HOME CARE INSTRUCTIONS: Diet Instructions: RegularSpecial Diet: Reg. diet. ACTIVITY: Activity Restrictions: No Restrictions FOLLOW UP/APPOINTMENTS Follow-up Plan Take salt tablets with meals three times a day Follow up with Dr. Parkinson for monitoring of your sodium levels Keep well hydrated If experiencing symptoms again, return to the ED Make sure you talk to your PCP about thyroid medication for subclinical hypothyroidism REFERRALS Other Referrals Name, Degree Aadma Parkinson MD Specialty Nephrology Office Address [address] [place] [address] Office Office AYALA BRITO MD Jul 29, 2017 11:59
--- NOTE | 2017-07-29 12:56 | CONS ---
Date/Time of Note Date/Time of Note DATE: 07/29/17 TIME: 12:54 Assessment/Plan Assessment/Plan Chief Complaint/Hosp Course 1. Hyponatremia. 2. Rule out underlying syndrome of inappropriate antidiuretic hormone secretion. 3. Hypertension, controlled. 4. Anemia. 5. cachexia. Problems: Additional Assessment/Plan 1. Discharge home with fluid restrictions Consultation Date/Type/Reason Admit Date/Time Jul 26, 2017 at 12:57 Initial Consult Date Type of Consultation: [id number] Exam/Review of Systems Vital Signs Vitals Vital Signs Date Time Temp Pulse Resp B/P Pulse Ox O2 Delivery O2 Flow Rate FiO2 07/29/17 12:16 81 07/29/17 11:59 98.3 20 97/48 98 07/27/17 05:33 Room Air Intake and Output 07/28/17 07/28/17 07/29/17 14:59 22:59 06:59 Intake Total 500 ml 200 ml Balance 500 ml 200 ml Results Result Diagram: 07/27/17 0435 07/29/17 0839 Results 24 hrs Laboratory Tests Test 07/28/17 16:41 07/29/17 00:52 07/29/17 08:39 Sodium Level 128 L 131 L 133 L Potassium Level 4.8 Chloride Level 97 Carbon Dioxide Level 27 Anion Gap 14 Blood Urea Nitrogen 17 Creatinine 0.73 Glucose Level 94 Calcium Level 10.0 Phosphorus Level 4.5 Magnesium Level 2.3 Albumin 4.4 Medications Medications Current Medications Atenolol (Tenormin) 25 mg DAILY PO Last administered on 07/29/17 09:13; Admin Dose 25 MG; Start 07/27/17 at 09:00 Benazepril HCl (Lotensin) 20 mg DAILY PO Last administered on 07/29/17 09:13; Admin Dose 20 MG; Start 07/27/17 at 09:00 Eye Lubricant (Refresh Plus) 2 drop QID BOTH EYES Last administered on 11:10; Admin Dose 2 DROP; Start 07/26/17 at 17:00 Latanoprost (Xalatan) 1 drop QHS BOTH EYES Last administered on 07/28/17 21:52 ; Admin Dose 1 DROP; Start 07/26/17 at 21:00 Enoxaparin Sodium (Lovenox) 40 mg DAILY SC ; Start 07/27/17 at 09:00 Famotidine (Pepcid) 20 mg Q24H PO Last administered on 07/26/17 21:16; Admin Dose 20 MG; Start 07/26/17 at 21:06 Demeclocycline HCl (Declomycin) 300 mg BID NGT Last administered on 07/27/17 14 :28; Admin Dose 300 MG; Start 07/27/17 at 14:00 Levothyroxine Sodium (Synthroid) 25 mcg DAILY@06 PO ; Start 07/28/17 at 06:00 JUNITO CHRISTENSEN Jul 29, 2017 12:56
--- NOTE | 2017-07-30 08:29 | DS ---
Date/Time of Note Date/Time of Note DATE: 07/30/17 TIME: 08:23 Discharge Summary Admission/Discharge Info Admit Date/Time Jul 26, 2017 at 12:57 Discharge Date/Time Jul 29, 2017 at 13:10 Discharge Diagnosis Abdominal pain with nausea/vomiting secondary to hyponatremia Patient Condition: Good Consults Nephrology, Dr. Parkinson Hx of Present Illness 66 yo F with PMH glaucoma, cataracts, and hypertension presented to ED with abdominal pain, nausea, and vomiting for 3 day period. Son was at bedside as well providing information. Patient has been experiencing 3-4 episodes of nonbloody emesis daily. Last vomited at 9:30am on day of admission. Denies eating anything new but daughter was admitted for the same symptoms over the weekend. States abdominal pain is intermittent, not associated with eating, and relieved after vomiting. Unable to describe type of abdominal pain experiencing. She was recently admitted at [facility] in [place] and discharged on 07/23/17 with diagnosis of hyponatremia and UTI. She was discharged on Bactrim and states her nausea and vomiting began after starting the medication. She admits to loose BMs as well that are foul smelling. She stopped the medication after one dose. Denies any dysuria, suprapubic tenderness, change in smell or color of urine or hematuria. Hospital Course Patient was admitted to telemetry floor after findings of Na 116. Per patients son she has been told multiple times in the past couple months that she has had low sodium levels. She states that she usually feels dizzy with nausea, vomiting, and abdominal pain when her levels are low. 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 Nephrology was consulted for assistance and started patient on Demeclocycline which she was unable to tolerate. She was then tried on Tolvaptan which improved her Na level to 133. She was found to have a TSH of 7 and discussion was held with patient about starting levothyroxine as her underactive thyroid may be contributing to hyponatremia. She refused and wanted to discuss with her PCP. All patients symptoms resolved and was discharged home on NaCl tablets TID with meals and follow up with Dr. Parkinson. Home Meds Active Scripts Sodium Chloride* (Nacl*) 1 Gm Tab, 1 GM PO TID for 30 Days, #90 TAB Prov:AYALA BRITO MD 07/29/17 Reported Medications Carboxymethylcellulose Sodium* (Refresh Tears*) 15 Ml Drops, 2 DROP BOTH EYES QID, #1 EA 07/26/17 Latanoprost (Xalatan) 2.5 Ml Drops, 1 DROP BOTH EYES QHS, #1 BOTTLE 07/26/17 Benazepril Hcl* (Benazepril Hcl*) 20 Mg Tablet, 20 MG PO DAILY, #30 TAB 07/26/17 Atenolol* (Atenolol*) 25 Mg Tablet, 12.5 MG PO DAILY, #30 TAB 07/26/17 Follow-up Plan Follow up with PCP to discuss being started Levothyroxine. She was also instructed to take salt tablets TID and follow up with Dr. Parkinson as an outpatient. Primary Care Provider Delia Stewart Time spent on discharge: > 30 minutes Pending Labs Laboratory Tests Test 07/29/17 08:39 Sodium Level 133mmol/L (135-144) Potassium Level 4.8mmol/L (3.5-5.1) Chloride Level 97mmol/L (97-110) Carbon Dioxide Level 27mmol/L (21-31) Anion Gap 14 (8-16) Blood Urea Nitrogen 17mg/dl (7-20) Creatinine 0.73mg/dl (0.44-1.00) Glucose Level 94mg/dl (70-220) Calcium Level 10.0mg/dl (8.4-10.2) Phosphorus Level 4.5mg/dl (2.5-4.9) Magnesium Level 2.3mg/dl (1.7-2.5) Albumin 4.4g/dl (3.3-4.9) AYALA BRITO MD Jul 30, 2017 08:29
== END 2017-07-29 13:10 | disposition home or self-care (01) | DRG 641 ==
LOC: E/R 09:38 → MS3 12:57 → TEL 07-27 05:20
PROVIDERS: ADMIT Internal Medicine; ATTEND Internal Medicine
DX: E87.1 Hypo-osmolality and hyponatremia (principal); R64 Cachexia; N39.0 Urinary tract infection, site not specified; Z68.1 Body mass index [BMI] 19.9 or less, adult; I10 Essential (primary) hypertension; D64.9 Anemia, unspecified; R11.2 Nausea with vomiting, unspecified; R10.84 Generalized abdominal pain; H40.9 Unspecified glaucoma; E03.9 Hypothyroidism, unspecified
CPT/HCPCS: 36415; 76775; 80053; 80069; 81001; 82436; 82533; 82962; 83690; 83735; 83930; 83935; 84133; 84295; 84300; 84439; 84443; 84481; 84484; 84560; 85025; 87081; 87086; 93005; 96374; 96375; J1650; J2270; J2405; J7030